=== PATIENT | female | born 1970 | race Caucasian/White ===

== ENCOUNTER 2024-08-21 06:29 | Inpatient (IN) | payer SELFPAY ==
[2024-08-21] MEDS ORDERED: Glucagon 1 MG/ML KIT IM PRN (07:38)
[2024-08-21] MEDS ORDERED: Dextrose 50% Abboject 50 ML SYRINGE SLOW IVP PRN (07:38)
[2024-08-21] MEDS ORDERED: Acetaminophen 325 MG TAB PO PRN (07:38)
[2024-08-21] MEDS ORDERED: hydrALAZINE 20 MG/ML VIAL SLOW IVP PRN (07:38)
[2024-08-21] MEDS ORDERED: Ondansetron PF 4 MG/2 ML Vial IVP PRN (07:38)
[2024-08-21] MEDS ORDERED: Ondansetron ODT 4 MG TAB PO PRN (07:38)
[2024-08-21] MEDS ORDERED: Dextrose 5% in Water 1,000 ML IV PRN (07:38)
[2024-08-21] MEDS: Morphine 2 MG/ML VIAL SLOW IVP PRN (08:41)
[2024-08-21] MEDS ORDERED: CEFAZOLIN 2 GM in Sodium Chloride 0.9% 100 ML IVPB SCH (09:00)
[2024-08-21 11:22] VITALS: BMI 22.6
[2024-08-21] MEDS ORDERED: TETANUS, DIPHTHERIA TOX,ADULT (TDVAX) 0.5 ML VIAL IM ONE (12:00)
[2024-08-21] MEDS ORDERED: fentaNYL 50 mcg/mL 1 mL Vial ONE ×4 (14:01→20:09)
[2024-08-21] MEDS ORDERED: Midazolam HCl 2 mg/2 ml Vial ONE (14:48)
[2024-08-21] MEDS ORDERED: fentaNYL PF 100 MCG/2 ML SYRINGE ONE (14:56)
[2024-08-21] MEDS ORDERED: PROPOFOL 20 ML ONE (14:57)
[2024-08-21] MEDS ORDERED: Lidocaine 1% PF 5 ML VIAL ONE (14:57)
[2024-08-21] MEDS ORDERED: Ondansetron PF 4 MG/2 ML Vial ONE (14:57)
[2024-08-21] MEDS ORDERED: CEFAZOLIN 2 GM VIAL ONE (14:58)
[2024-08-21] MEDS ORDERED: Ketorolac Tromethamine 30 MG (1 mL) VIAL ONE (17:27)
[2024-08-21] MEDS ORDERED: Meperidine HCl/PF 25 MG (1 mL) VIAL ONE (18:24)
[2024-08-21] MEDS: CEFAZOLIN 2 GM in Sodium Chloride 0.9% 100 ML IVPB SCH (21:04)
[2024-08-21] MEDS: HYDROcodone/Acetaminophen 5/325 mg Tablet PO PRN (21:04)
[2024-08-21] MEDS: Nicotine 21 MG PATCH TD SCH (21:05)
[2024-08-21] MEDS: TETANUS AND DIPHTHERIA TOX/PF 0.5 ML DISP.SYRIN IM SCH (23:46)
[2024-08-22] MEDS: Methocarbamol 500 MG TAB PO PRN (00:32)
[2024-08-22] MEDS: Gabapentin 300 MG CAP PO SCH ×2 (00:32→08:24)
[2024-08-22] MEDS: traMADol HCl 50 MG TAB PO PRN ×2 (04:54→21:49)
[2024-08-22] MEDS: Sodium Chloride 0.9% 1,000 ML IV SCH (05:51)
[2024-08-22 06:00] LABS: #Basophils 0.05 10x3/uL (0.0-0.2); %Basophils 0.5 % (0.0-1.0); %Lymphocytes 25.5 % (21.0-51.0); %Neutrophils 63.7 % (42.0-75.0); Hematocrit 34.8 % (36.0-47.0); Hemoglobin 11.6 g/dL (12.0-16.0); Mean Corpuscular HGB CONC 33.3 g/dL (32.0-36.0); Mean Corpuscular Hemoglobin 32.1 pg (27.0-31.0); Mean Corpuscular Volume 96.4 fL (78.0-98.0); Mean Platelet Volume 10.7 fL (7.4-10.4); Platelet Count 230 10x3/uL (130-400); RBC Distribution Width 13.5 % (11.5-14.5); Red Blood Cell (RBC) Count 3.61 mill/uL (4.20-5.40)
[2024-08-22 06:22] LABS: Anion Gap 12 mmol/L (10-20); BUN (Urea Nitrogen) 8 mg/dL (9.8-20.1); Calc. Creatinine Clearance 89 mL/min (70-130); Calcium 7.8 mg/dL (7.8-10.44); Carbon Dioxide 23 mmol/L (22-29); Chloride 105 mmol/L (98-107); Estimated GFR 103; Glucose 91 mg/dL (70-105); Potassium 3.5 mmol/L (3.5-5.1); Sodium 136 mmol/L (136-145)
[2024-08-22] MEDS: traMADol HCl 50 MG TAB PO SCH (11:24)
[2024-08-22] MEDS: Senokot S 8.6-50 MG TAB PO SCH (20:37)
[2024-08-22] MEDS: Enoxaparin 40 MG (0.4 mL) SYRINGE SC SCH (20:37)
[2024-08-23] MEDS ORDERED: Bisacodyl 5 MG TAB PO PRN (08:30)
[2024-08-24 05:37] LABS: Hematocrit 34.5 % (36.0-47.0); Hemoglobin 11.7 g/dL (12.0-16.0)
[2024-08-24 12:27] VITALS: BP 99/64; TEMP 97.9
== END 2024-08-24 14:38 | disposition home or self-care (01) | DRG 494 ==
LOC: SURG A 06:29
PROVIDERS: ADMIT Surgery; ATTEND Surgery
PROC: 0QSH04Z Reposition Left Tibia with Internal Fixation Device, Open Approach (ICD-10-PCS; principal; 2024-08-21)
PROC: 0QSK04Z Reposition Left Fibula with Internal Fixation Device, Open Approach (ICD-10-PCS; 2024-08-21)
DX: S82.872A Displaced pilon fracture of left tibia, initial encounter for closed fracture (principal); S82.832A Other fracture of upper and lower end of left fibula, initial encounter for closed fracture; W01.0XXA Fall on same level from slipping, tripping and stumbling without subsequent striking against object, initial encounter; F17.210 Nicotine dependence, cigarettes, uncomplicated; Z88.8 Allergy status to other drugs, medicaments and biological substances; Z79.899 Other long term (current) drug therapy; S60.511A Abrasion of right hand, initial encounter
CPT/HCPCS: 36415; 80048; 85014; 85018; 85025; 90714; C1713; J1650; J1885; J2175; J2250; J2272; J2405; J2704; J3010; J7030

== ENCOUNTER 2025-03-26 08:00 | Outpatient (CLI) | payer OTHER | END 2025-03-26 08:01 | disposition home or self-care (01) | LOC: PET 08:00 | PROVIDERS: ATTEND Student in an Organized Health Care Education/Training Program | DX: R91.1 Solitary pulmonary nodule (principal) | CPT/HCPCS: 78815; A9552 ==

== ENCOUNTER 2025-05-14 16:00 | Inpatient (IN) | payer OTHER ==
[2025-05-14 16:10] VITALS: BMI 20.6
[2025-05-14 16:47] LABS: #Basophils 0.08 10x3/uL (0.0-0.2); #Eosinophils 0.22 10x3/uL (0.0-0.7); #Monocytes 0.76 10x3/uL (0.11-0.59); #Neutrophils 4.45 10x3/uL (1.40-6.50); %Basophils 0.9 % (0.0-1.0); %Eosinophils 2.4 % (0.0-10.0); %Lymphocytes 38.6 % (21.0-51.0); %Monocytes 8.5 % (0.0-10.0); %Neutrophils 49.5 % (42.0-75.0); Hematocrit 49.1 % (36.0-47.0); Hemoglobin 15.9 g/dL (12.0-16.0); Mean Corpuscular Hemoglobin 30.7 pg (27.0-31.0); Mean Corpuscular Volume 94.8 fL (78.0-98.0); Platelet Count 356 10x3/uL (130-400); Red Blood Cell (RBC) Count 5.18 mill/uL (4.20-5.40); White Blood Cell (WBC) Count 8.99 10x3/uL (4.8-10.8)
[2025-05-14 17:08] LABS: Anion Gap 15 mmol/L (10-20); BUN (Urea Nitrogen) 9 mg/dL (9.8-20.1); Calc. Creatinine Clearance 0 mL/min (70-130); Calcium 10.2 mg/dL (7.8-10.44); Carbon Dioxide 26 mmol/L (22-29); Chloride 104 mmol/L (98-107); Glucose 85 mg/dL (70-105); Potassium 4.0 mmol/L (3.5-5.1); Sodium 141 mmol/L (136-145)
[2025-05-16] MEDS ORDERED: CEFAZOLIN 2 GM VIAL ONE ×2 (06:16→18:22)
[2025-05-16] MEDS ORDERED: Bupivacaine 0.25% HCL 30 ML VIAL ONE (06:38)
[2025-05-16] MEDS ORDERED: Ondansetron PF 4 MG/2 ML Vial ONE (06:57)
[2025-05-16] MEDS ORDERED: PHENYLEPHRINE-NS 100 MCG/ML 10 ML SYRINGE ONE (06:57)
[2025-05-16] MEDS ORDERED: fentaNYL PF 100 MCG/2 ML SYRINGE ONE ×4 (06:57→15:12)
[2025-05-16] MEDS ORDERED: PROPOFOL 20 ML ONE (06:57)
[2025-05-16] MEDS ORDERED: Lidocaine 1% PF 5 ML VIAL ONE (06:57)
[2025-05-16] MEDS ORDERED: Rocuronium Bromide 10 MG/ML (10ML VIAL) ONE ×2 (06:57→09:18)
[2025-05-16] MEDS ORDERED: Glycopyrrolate 0.2 MG/ML 5 ML SYRINGE ONE (06:57)
[2025-05-16] MEDS ORDERED: Lidocaine 2% 6 ML (Jelly) SYR ONE (07:06)
[2025-05-16] MEDS ORDERED: SUGAMMADEX SODIUM 200 MG/2 ML VIAL ONE ×2 (09:38)
[2025-05-16] MEDS ORDERED: hydrALAZINE 20 MG/ML VIAL SLOW IVP PRN (09:59)
[2025-05-16] MEDS ORDERED: Ondansetron PF 4 MG/2 ML Vial IVP PRN (09:59)
[2025-05-16] MEDS ORDERED: HYDROmorphone 2 MG/ML VIAL ONE (10:15)
[2025-05-16] MEDS ORDERED: Ketorolac Tromethamine 30 MG (1 mL) VIAL ONE (10:42)
[2025-05-16] MEDS ORDERED: Cyclobenzaprine 10 MG TAB ONE (12:11)
[2025-05-16] MEDS: Cyclobenzaprine 10 MG TAB PO PRN (12:12)
[2025-05-16] MEDS: Ketorolac Tromethamine 30 MG (1 mL) VIAL IVP SCH (13:40)
[2025-05-16 13:55] LABS: #Basophils 0.05 10x3/uL (0.0-0.2); #Eosinophils Less than 0.03 10x3/uL (0.0-0.7); #Monocytes 0.60 10x3/uL (0.11-0.59); #Neutrophils 21.01 10x3/uL (1.40-6.50); %Basophils 0.2 % (0.0-1.0); %Eosinophils 0.0 % (0.0-10.0); %Lymphocytes 3.4 % (21.0-51.0); %Monocytes 2.7 % (0.0-10.0); %Neutrophils 92.9 % (42.0-75.0); Hematocrit 45.1 % (36.0-47.0); Hemoglobin 14.8 g/dL (12.0-16.0); Mean Corpuscular Hemoglobin 31.2 pg (27.0-31.0); Mean Corpuscular Volume 94.9 fL (78.0-98.0); Platelet Count 291 10x3/uL (130-400); Red Blood Cell (RBC) Count 4.75 mill/uL (4.20-5.40); White Blood Cell (WBC) Count 22.59 10x3/uL (4.8-10.8)
[2025-05-16 14:07] LABS: Anion Gap 17 mmol/L (10-20); BUN (Urea Nitrogen) 9 mg/dL (9.8-20.1); Calc. Creatinine Clearance 94 mL/min (70-130); Calcium 8.5 mg/dL (7.8-10.44); Carbon Dioxide 21 mmol/L (22-29); Chloride 107 mmol/L (98-107); Glucose 126 mg/dL (70-105); Potassium 3.8 mmol/L (3.5-5.1); Sodium 141 mmol/L (136-145)
[2025-05-16] MEDS ORDERED: HYDROcodone/Acetaminophen 5/325 mg Tablet ONE (14:49)
[2025-05-16] MEDS: HYDROcodone/Acetaminophen 5/325 mg Tablet PO PRN (14:58)
[2025-05-16] MEDS: Acetaminophen 325 MG TAB PO SCH (18:53)
[2025-05-16] MEDS: Heparin 5,000 UNITS/ML VIAL SC SCH (19:18)
[2025-05-16] MEDS: Gabapentin 300 MG CAP PO SCH (20:52)
[2025-05-17] MEDS: CEFAZOLIN 2 GM VIAL ONE (09:45)
[2025-05-17 12:10] VITALS: TEMP 98
[2025-05-17 16:22] VITALS: BP 148/81
== END 2025-05-17 17:35 | disposition home or self-care (01) | DRG 165 ==
LOC: SURG A 05-16 05:52 → EDSTATUS 05-16 09:06 → PCU 05-16 20:25
PROVIDERS: ADMIT Student in an Organized Health Care Education/Training Program; ATTEND Student in an Organized Health Care Education/Training Program
PROC: 0BBG4ZZ Excision of Left Upper Lung Lobe, Percutaneous Endoscopic Approach (ICD-10-PCS; principal; 2025-05-16)
PROC: 07B73ZX Excision of Thorax Lymphatic, Percutaneous Approach, Diagnostic (ICD-10-PCS; 2025-05-16)
PROC: 3E03329 Introduction of Other Anti-infective into Peripheral Vein, Percutaneous Approach (ICD-10-PCS; 2025-05-16)
PROC: 3E033XZ Introduction of Vasopressor into Peripheral Vein, Percutaneous Approach (ICD-10-PCS; 2025-05-16)
DX: C34.12 Malignant neoplasm of upper lobe, left bronchus or lung (principal); Z79.899 Other long term (current) drug therapy; Z79.52 Long term (current) use of systemic steroids
CPT/HCPCS: 36416; 71045; 80048; 85025; 86850; 86900; 86901; 88305; 88307; 88331; 88332; 88341; 88342; C1776; J0169; J0665; J1100; J1171; J1642; J1644; J1885; J2250; J2704; J7050; S2900